=== PATIENT | male | born 1950 | race Caucasian/White ===

== ENCOUNTER → 2016-04-28 | Outpatient (CLI) | payer BC ==
[~2016-04-28] MED LIST: ALTACE 5MG5 MG PO; AMBIEN 10MG10 MG PO; ANDROGEL1% TP; ATARAX50 MG PO; CRESTOR40 MG PO; DEPAKOTE500 MG PO; DOXYCYCLINE 10100 MG PO; GEODON60 MG PO; KLONOPIN 1MG1 MG PO; LAMICTAL 100MG100 MG PO; LEXAPRO 5MG5 MG PO; LEXAPRO5 MG PO; NORCO 325 MG-7.1 TAB PO; ULTRAM 50MG TAB50 MG PO
== END ==
LOC: BHSO 14:39
DX: F31.81 Bipolar II disorder (principal)

== ENCOUNTER → 2016-05-26 | Outpatient (CLI) | payer BC | LOC: BHSO 13:20 | DX: F31.81 Bipolar II disorder (principal) ==

== ENCOUNTER → 2016-07-07 | Outpatient (CLI) | payer BC | LOC: BHSO 10:38 | DX: F31.81 Bipolar II disorder (principal) ==

== ENCOUNTER → 2016-07-15 | Outpatient (CLI) | payer BC | LOC: BHSO 15:14 | DX: F33.41 Major depressive disorder, recurrent, in partial remission (principal) ==

== ENCOUNTER → 2016-09-08 | Outpatient (CLI) | payer BC | LOC: BHSO 10:51 | DX: F31.81 Bipolar II disorder (principal) ==

== ENCOUNTER → 2016-12-01 | Outpatient (CLI) | payer BC | LOC: BHSO 10:39 | DX: F41.1 Generalized anxiety disorder (principal) ==

== ENCOUNTER → 2016-12-08 | Outpatient (CLI) | payer BC | LOC: COL.PUL 10:47 | DX: R06.02 Shortness of breath (principal) | CPT/HCPCS: J7674 ==

== ENCOUNTER 2016-12-19 08:06 | Outpatient (CLI) | payer BC ==
[~2016-12-19] VITALS: Ht 185.5 cm; Wt 131.4 kg
[2016-12-19] VITALS (16 sets, daily range): BP systolic 135–183; BP diastolic 76–104; PULSE 66–82
[~2016-12-19 08:06] MED LIST changes: -LEXAPRO 5MG5 MG PO; +LEXAPRO20 MG PO
[2016-12-19] MEDS ORDERED: WELLBUTRIN XL300 M1 PO (08:47)
[2016-12-19] MEDS ORDERED: MINIPRESS 1M1 MG/CAP PO (08:48)
[2016-12-19] MEDS ORDERED: VITAMIN D32000 I1 PO (08:48)
[2016-12-19] MEDS ORDERED: ZESTRIL2.5 MG PO (08:50)
[2016-12-19 09:09] LABS: HEMATOCRIT 43.9 % (42.0-52.0); HEMOGLOBIN 14.7 g/dl (13.5-18.0); MEAN CELL VOLUME 93 fl (80.0-100.0); MEAN CORPUSCULAR HEMOGLOBIN 31 pg (27.0-31.0); MEAN CORPUSCULAR HGB CONC 34 g/dl (33.0-37.0); MEAN PLATELET VOLUME 9.7 fl (7.4-10.4); PLATELET COUNT 258 K/mm3 (130-400); RED BLOOD COUNT 4.71 M/mm3 (4.20-5.60); REDCELL DISTRIBUTION WIDTH-CV 12.8 % (11.5-14.5); WHITE BLOOD COUNT 6.3 K/mm3 (4.8-10.8)
[2016-12-19 09:10] LABS: CALCIUM 8.7 mg/dL (8.4-10.2); CREATININE, serum 1.01 mg/dL (0.66-1.25); POTASSIUM 4.5 mmol/L (3.4-5.0)
[2016-12-19 09:30] LABS: INR 0.9 (0.8-3.0); PROTHROMBIN TIME 10.3 SECONDS (9.7-12.8)
== END 2016-12-19 12:07 | disposition home or self-care (01) ==
LOC: COL.RAD 08:06
PROVIDERS: Internal Medicine Interventional Cardiology
DX: I34.0 Nonrheumatic mitral (valve) insufficiency (principal); I10 Essential (primary) hypertension; R42 Dizziness and giddiness
CPT/HCPCS: J2250; J3010

== ENCOUNTER → 2016-12-29 | Outpatient (CLI) | payer BC ==
[~2016-12-29] MED LIST changes: +MINIPRESS 1M1 MG/CAP PO; +VITAMIN D32000 I1 PO; +WELLBUTRIN XL300 M1 PO; +ZESTRIL2.5 MG PO
== END ==
LOC: BHSO 14:37
DX: F31.81 Bipolar II disorder (principal)

== ENCOUNTER → 2017-01-12 | Outpatient (CLI) | payer BC | LOC: BHSO 10:59 | DX: F33.1 Major depressive disorder, recurrent, moderate (principal) ==

== ENCOUNTER → 2017-01-26 | Outpatient (CLI) | payer BC | LOC: BHSO 08:34 | DX: F31.81 Bipolar II disorder (principal) ==

== ENCOUNTER → 2017-02-10 | Outpatient (CLI) | payer BC | LOC: BHSO 15:39 | DX: F31.81 Bipolar II disorder (principal) ==

== ENCOUNTER → 2017-03-09 | Outpatient (CLI) | payer BC | LOC: BHSO 09:32 | DX: F33.1 Major depressive disorder, recurrent, moderate (principal) ==

== ENCOUNTER → 2017-03-24 | Outpatient (CLI) | payer BC | LOC: BHSO 15:46 | DX: F31.81 Bipolar II disorder (principal) ==

== ENCOUNTER → 2017-04-27 | Outpatient (CLI) | payer OTHER, BC | LOC: BHSO 14:37 | DX: F31.81 Bipolar II disorder (principal) ==

== ENCOUNTER → 2017-05-11 | Outpatient (CLI) | payer OTHER, BC | LOC: BHSO 10:05 | DX: F43.10 Post-traumatic stress disorder, unspecified (principal) | CPT/HCPCS: G0463 ==

== ENCOUNTER 2017-07-20 11:29 | Inpatient (IN) | payer OTHER, BC, MEDICARE ==
[~2017-07-20] VITALS: Ht 185.4 cm; Wt 129.0 kg
[2017-10-01] VITALS (637 sets, daily range): BP systolic 101–150; BP diastolic 56–98; PULSE 105–121; TEMP 98.3–99.1; O2SAT 83–99
[2017-10-01 14:09] LABS: ALBUMIN 3.9 gm/dL (3.5-5.0); BILIRUBIN,TOTAL 0.5 mg/dL (0.0-1.0); CALCIUM 8.6 mg/dL (8.4-10.2); CREATININE, serum 1.44 mg/dL (0.66-1.25); POTASSIUM 4.7 mmol/L (3.4-5.0)
[2017-10-01 17:10] LABS: ARTERIAL BLD GAS O2 SATURATION 93.7 % (92-100); ARTERIAL BLD GAS TCO2 CT 25.3; ARTERIAL BLOOD GAS BASE EXCESS -1.5 (-2-2); ARTERIAL BLOOD GAS PCO2 43.1 mmHg (35-45); ARTERIAL BLOOD GAS PO2 72.4 mmHg (80-100); ARTERIAL BLOOD GAS pH 7.36 (7.35-7.45)
[2017-10-02] VITALS (862 sets, daily range): BP systolic 131–146; BP diastolic 64–84; PULSE 76–102; TEMP 97.7–98.5; O2SAT 82–100
[2017-10-02 05:13] LABS: BASO % 0.4 % (0.0-2.0); EOS % 0.4 % (0-4.0); GRAN # 6.7 (1.4-6.5); GRAN % 73.4 % (42.2-75.2); HEMATOCRIT 39.6 % (42.0-52.0); HEMOGLOBIN 13.3 g/dl (13.5-18.0); LYMPH # 1.4 (1.2-3.4); LYMPH % 15.6 % (20.0-51.0); MEAN CELL VOLUME 90 fl (80.0-100.0); MEAN CORPUSCULAR HEMOGLOBIN 30 pg (27.0-31.0); MEAN CORPUSCULAR HGB CONC 34 g/dl (33.0-37.0); MEAN PLATELET VOLUME 9.6 fl (7.4-10.4); MONO # 0.9 (0.1-0.6); PLATELET COUNT 260 K/mm3 (130-400); REDCELL DISTRIBUTION WIDTH-CV 12.7 % (11.5-14.5)
[2017-10-02 05:23] LABS: ALBUMIN 3.5 gm/dL (3.5-5.0); BILIRUBIN,TOTAL 0.7 mg/dL (0.0-1.0); CREATININE, serum 1.38 mg/dL (0.66-1.25); POTASSIUM 3.9 mmol/L (3.4-5.0); TOTAL PROTEIN 6.3 gm/dL (6.4-8.2)
[2017-10-02 05:53] LABS: TSH w REFLEX 0.454 uIU/mL (0.465-4.680)
[2017-10-03 04:34] VITALS: BP 155/87; PULSE 100; TEMP 98.5
[2017-10-03 08:01] VITALS: BP 132/79; PULSE 99; TEMP 98.6
[2017-10-03 09:07] LABS: BASO # 0.1 (0.0-0.2); BASO % 0.7 % (0.0-2.0); EOS # 0.1 (0.0-0.7); EOS % 1.1 % (0-4.0); HEMATOCRIT 43.6 % (42.0-52.0); HEMOGLOBIN 14.5 g/dl (13.5-18.0); LYMPH % 11.2 % (20.0-51.0); MEAN CELL VOLUME 91 fl (80.0-100.0); MEAN CORPUSCULAR HEMOGLOBIN 30 pg (27.0-31.0); MEAN CORPUSCULAR HGB CONC 33 g/dl (33.0-37.0); MEAN PLATELET VOLUME 9.6 fl (7.4-10.4); MONO # 0.7 (0.1-0.6); MONO % 7.7 % (1.7-9.3); PLATELET COUNT 270 K/mm3 (130-400); RED BLOOD COUNT 4.82 M/mm3 (4.20-5.60); REDCELL DISTRIBUTION WIDTH-CV 12.5 % (11.5-14.5)
[2017-10-03 09:17] LABS: CALCIUM 8.8 mg/dL (8.4-10.2); CREATININE, serum 0.93 mg/dL (0.66-1.25); POTASSIUM 3.7 mmol/L (3.4-5.0)
== END 2017-10-03 11:30 | disposition home or self-care (01) | DRG 483 ==
LOC: JCC 10-01 05:23 → ICU 10-01 12:22 → SURG 10-02 16:14
PROVIDERS: Hospitalist; Internal Medicine Critical Care Medicine; Orthopaedic Surgery
PROC: 0RRJ00Z Replacement of Right Shoulder Joint with Reverse Ball and Socket Synthetic Substitute, Open Approach (ICD-10-PCS; principal; 2017-10-01 07:30)
DX: M19.011 Primary osteoarthritis, right shoulder (principal); E66.2 Morbid (severe) obesity with alveolar hypoventilation; G97.49 Accidental puncture and laceration of other nervous system organ or structure during other procedure; G56.81 Other specified mononeuropathies of right upper limb; I10 Essential (primary) hypertension; Z68.38 Body mass index [BMI] 38.0-38.9, adult; R09.02 Hypoxemia
CPT/HCPCS: 99222; 99223; 99232-AI; A4314; A9284; C1713; C1776; J0690; J1100; J2250; J2270; J2405; J2704; J2795; J3010; J7120

== ENCOUNTER → 2017-09-24 | Outpatient (CLI) | payer OTHER, BC ==
[2017-09-24 17:05] LABS: HIV 1/2 Antibodies Non-Reactive; HIV-1p24 Antigen Non-Reactive
== END ==
LOC: COL.LAB 16:08
PROVIDERS: Orthopaedic Surgery
DX: Z01.812 Encounter for preprocedural laboratory examination (principal); M19.011 Primary osteoarthritis, right shoulder

== ENCOUNTER → 2018-03-29 | Outpatient (CLI) | payer OTHER, BC ==
[2018-03-29 12:08] LABS: HEMATOCRIT 48.3 % (42.0-52.0); HEMOGLOBIN 16.5 g/dl (13.5-18.0); MEAN CELL VOLUME 88 fl (80.0-100.0); MEAN CORPUSCULAR HEMOGLOBIN 30 pg (27.0-31.0); MEAN CORPUSCULAR HGB CONC 34 g/dl (33.0-37.0); MEAN PLATELET VOLUME 9.4 fl (7.4-10.4); PLATELET COUNT 285 K/mm3 (130-400); RED BLOOD COUNT 5.49 M/mm3 (4.20-5.60); REDCELL DISTRIBUTION WIDTH-CV 12.5 % (11.5-14.5)
[2018-03-29 12:33] LABS: ERYTHROCYTE SEDIMENTATION RATE 10 mm/hr (0-30)
== END ==
LOC: COL.LAB 11:20
PROVIDERS: Orthopaedic Surgery
DX: M25.562 Pain in left knee (principal); Z96.652 Presence of left artificial knee joint

== ENCOUNTER 2018-04-26 13:27 | Inpatient (IN) | payer OTHER, BC, MEDICARE ==
[~2018-04-26] VITALS: Ht 185.4 cm; Wt 131.0 kg
[2018-06-10] VITALS (11 sets, daily range): BP systolic 110–148; BP diastolic 71–90; PULSE 77–91; TEMP 98.2–98.7
[2018-06-10] MEDS ORDERED: ULTRAM 50MG TAB50 MG PO (08:56)
[2018-06-10] MEDS ORDERED: CRESTOR40 MG PO (08:57)
[2018-06-10] MEDS ORDERED: LEXAPRO 10MG10 MG PO (08:57)
[2018-06-10] MEDS ORDERED: XANAX .25M0.25 MG/TA PO (08:58)
[2018-06-10] MEDS ORDERED: NORVASC 10MG10 MG PO (08:58)
--- NOTE | 2018-06-10 08:59 | NUR ---
Initial visit; Patient thanked Catalytic Converter Operator Helper for introducing herself and offering God's blessings.
--- NOTE | 2018-06-10 14:55 | NUR ---
PATIENT BACK IN ROOM 331 POST OP. A&O. VSS. DENIES PAIN IN LLE AT THIS TIME. PATIENT IS ABLE TO SLIGHTLY WIGGLE BLE. LTK DRESSING IS CD&I WITH AQUACEL AND ACEWRAP. TEDS TO RLE. SCD'S TO BLE. POSITIVE PEDAL PULSES TO BLE. ANDERSEN TO DEPENDENT DRAINAGE WITH SMALL AMOUNTS OF CLEAR YELLOW URINE NOTED. IV FLUIDS INFUSING INTO RIGHT HAND IV. NO C/O N/V. LIQUIDS AT BEDSIDE. HEAD TO TOE WNL. AT BEDSIDE. CALL LIGHT IN REACH.
--- NOTE | 2018-06-10 15:44 | NUR ---
CHAO met with patient and his to discuss discharge planning. Patient lives in [place] with his Linda. Patients PCP is Dr Kenji anderson and he obtains his medications from [facility] in . Patient has a walker and plans on doing his PT/OT outpatient at [facility] in [place]. He does not have DPOA and denies completing one. There are no anticipated discharge needs at this time.
--- NOTE | 2018-06-11 04:00 | NUR ---
PT GOT UP AND WALKED. WALKED FROM BED TO THE HALLWAY WALL RIGHT OUTSIDE OF BEDROOM. TOLERATED WELL. STATED THAT HIS KNEE FELT WELL DURING AMBULATION, THAT THE ONLY PAIN IT REALLY HAD WAS ON TOP OF HIS KNEE. AND THAT IS WHERE THE PAIN HAD MAINLY BEEN.
[2018-06-11 04:29] VITALS: BP 140/87; PULSE 89; TEMP 98
--- NOTE | 2018-06-11 06:26 | NUR ---
PT HAD C/O PAIN IN LT KNEE OVER NIGHT. HAS NEEDED PAIN MEDICATION ROUTINLY OVER NOC. CRYOCUFF IN PLACE. KNEE REMAINS IN STRAIGHT POSITION OVER NOC.
[2018-06-11 06:38] LABS: HEMATOCRIT 41.5 % (42.0-52.0)
--- NOTE | 2018-06-11 06:55 | NUR ---
awake resting in bed, bediside shift report received from BASIL Ko
[2018-06-11 07:29] VITALS: BP 135/74; PULSE 84; TEMP 98
--- NOTE | 2018-06-11 07:46 | NUR ---
Pt currently resting in bed oxygen at 3/lpm no distress or complaints of shortness of breath. Pt turned down from 3/lpm to 1/lpm at this time and taught how to use Incentive spirometer. Left leg elevated on pillow, able to wiggle toes on both feet. Left leg brace on with george wrap is clean,dry and intact.
--- NOTE | 2018-06-11 08:30 | NUR ---
full assessment completed, have reviewed assessment completed by student an in agreement with that assessment
--- NOTE | 2018-06-11 09:03 | NUR ---
physical therapy in to work with patient
--- NOTE | 2018-06-11 09:34 | NUR ---
pinon catheter discontinued by Francis, student nurse, occupational therapy in to work with patient
--- NOTE | 2018-06-11 10:32 | NUR ---
Pt complains of pain in Left knee 10/30. Gave 2 [place]. Will reassess.
[2018-06-11 12:00] VITALS: BP 120/72; PULSE 79; TEMP 97.4
--- NOTE | 2018-06-11 13:02 | NUR ---
ambulating in [place] with slow steady gait, no grimacing or moaning noted
--- NOTE | 2018-06-11 13:04 | NUR ---
Pt complaining about pain in knee 08/30. Toradol 15mg given at this time. Will continue to monitor.
--- NOTE | 2018-06-11 14:30 | NUR ---
resting in bed watching basketball game, denies needs at this time, Deon, student nurse will assist with care this pm
[2018-06-11 15:27] VITALS: BP 148/70; PULSE 61; TEMP 97.9
--- NOTE | 2018-06-11 18:24 | NUR ---
Patient ambulated in hallway. Tolerated ambulation well. Patient is resting in chair. Patient has call light within reach and is visiting with his . Passed on report to Bruna GRACIA.
--- NOTE | 2018-06-11 18:54 | NUR ---
in bed visiting with and watching TV, bedside shift report given to BASIL De Los Santos
[2018-06-11 20:00] VITALS: BP 149/71; PULSE 78; TEMP 98.6
--- NOTE | 2018-06-11 21:15 | NUR ---
PT AMB WITH WALKER IN [place] WITH SBA OF CADD INSTRUCTOR. LILIAN WELL.
--- NOTE | 2018-06-11 21:30 | NUR ---
PT RESTING IN BED. HAVING SHARP INTEMITTENT THROBBING PAIN TO LT KNEE. ELEVATED ON PILLOWS. ICE PACK ON. ENC PT TO AMB IN [place] TONIGHT WITH MECHANICAL ENGINEERING COOP. SEE MAR FOR PAIN MED. PT VOIDING W/O DIFFICULTY.
[2018-06-12 00:31] VITALS: BP 133/68; PULSE 83; TEMP 98.7
--- NOTE | 2018-06-12 01:23 | NUR ---
PT HAS BEEN SLEEPING WITH SNORUS RESP.
[2018-06-12 04:16] VITALS: BP 120/82; PULSE 79; TEMP 98.6
--- NOTE | 2018-06-12 04:52 | NUR ---
PT REPORTED AT THE BEGINNING OF THE SHIFT HE WAS URINATING W/O DIFFICULTY. PT UP TO BR WITH WALKER PER SELF PRN THROUGH THE NIGHT. PT SLEEPING NOW.
[2018-06-12 09:13] VITALS: BP 148/63; PULSE 74; TEMP 97
[2018-06-12] MEDS ORDERED: NORCO 325 MG-7.1 TAB PO (10:37)
[2018-06-12] MEDS ORDERED: ASPI325T6 PO (10:37)
[2018-06-12] MEDS ORDERED: ROXICODONE 55 MG/TAB PO (10:38)
[2018-06-12] MEDS ORDERED: ZANTAC 150MG T150 MG PO (10:39)
--- NOTE | 2018-06-12 12:00 | NUR ---
Left knee incisional pain improved with prn medication. Ambulated in halls with walker and physical therapy. Dr. Medina saw patient. Left knee incision line CDI. Randy rodriguez applied. Prescriptions and home instructions given. Dismissed to home with spouse.
== END 2018-06-12 12:00 | disposition home or self-care (01) | DRG 468 ==
LOC: JCC 06-10 06:34
PROVIDERS: ADMIT Orthopaedic Surgery
PROC: 0SRW0J9 Replacement of Left Knee Joint, Tibial Surface with Synthetic Substitute, Cemented, Open Approach (ICD-10-PCS; 2018-06-10)
PROC: 0SBD0ZZ Excision of Left Knee Joint, Open Approach (ICD-10-PCS; 2018-06-10)
PROC: 0SPW0JZ Removal of Synthetic Substitute from Left Knee Joint, Tibial Surface, Open Approach (ICD-10-PCS; principal; 2018-06-10 14:00)
DX: T84.013A Broken internal left knee prosthesis, initial encounter (principal); T84.89XA Other specified complication of internal orthopedic prosthetic devices, implants and grafts, initial encounter; M65.9 Synovitis and tenosynovitis, unspecified; I10 Essential (primary) hypertension; Z96.652 Presence of left artificial knee joint; N40.0 Benign prostatic hyperplasia without lower urinary tract symptoms
CPT/HCPCS: A4314; A9284; C1713; C1776; J0690; J1100; J1885; J2250; J2405; J2704; J7120

== ENCOUNTER → 2018-06-03 | Outpatient (CLI) | payer OTHER, BC, MEDICARE ==
[2018-06-03 11:12] LABS: HIV 1/2 Antibodies Non-Reactive; HIV-1p24 Antigen Non-Reactive
== END ==
LOC: COL.LAB 09:48
PROVIDERS: Orthopaedic Surgery
DX: Z01.812 Encounter for preprocedural laboratory examination (principal)

== ENCOUNTER 2019-03-31 10:10 | Inpatient (IN) | payer BC, MEDICARE ==
[~2019-03-31] VITALS: Ht 185.4 cm; Wt 123.3 kg
[~2019-03-31 10:10] MED LIST changes: +ASPI325T6 PO; +LEXAPRO 10MG10 MG PO; +NORVASC 10MG10 MG PO; +ROXICODONE 55 MG/TAB PO; +XANAX .25M0.25 MG/TA PO; +ZANTAC 150MG T150 MG PO
[2019-05-24] VITALS (10 sets, daily range): BP systolic 95–155; BP diastolic 55–83; PULSE 81–110; TEMP 97.8–98.5
--- NOTE | 2019-05-24 07:57 | NUR ---
pt prepped for surgery, pre op meds given as ordered.
--- NOTE | 2019-05-24 14:20 | NUR ---
PT TO ROOM 324 PER BED WITH REPORT FROM YADY GRACIA PACU. PT IS A/O X3. LUNGS COARSE, BOWEL SOUNDS HYPO. AQUACEL AND ICE TO LEFT SHOULDER IN SLING. IV TO PUMP. PT TOLERATING WELL VSS.
--- NOTE | 2019-05-24 14:38 | NUR ---
CHAO met with the patient and his , Linda (c.ph#[phone]), to discuss discharge plan. The patient lives in [place] with his and son. He reports independence with ADLs and does not have any DME. The patient's PCP is Dr. Kenji Hopkins and he receives his medications at [facility] in [place]. He reports no difficulties obtaining his meds. The patient does not have advanced directives and he was not interested in completing them at this time. The patient plans to return home with his family and receive outpatient therapy at [facility] upon discharge. No additional needs at this time.
--- NOTE | 2019-05-24 16:46 | NUR ---
RT NOTIFIED OF PT BASELINE OF 89 IS TAUGHT AND ENCOURAGED.
[2019-05-25 00:27] VITALS: BP 94/60; PULSE 95; TEMP 98
--- NOTE | 2019-05-25 01:12 | NUR ---
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 Able to move fingers and hand. Pulses present. Ice to left shoulder. Immobilizer in place. Started to complain of pain about 5. States 07/30. Refuses pain medication at this time. States he will call when he feels it is needed. Denies any further needs. Will continue to monitor.
[2019-05-25 04:51] VITALS: BP 115/64; PULSE 85; TEMP 98.4
--- NOTE | 2019-05-25 07:00 | NUR ---
awake resting in bed, bedside shift report recieved from BASIL Ackerman
[2019-05-25] MEDS ORDERED: XARELTO10 MG PO (07:27)
[2019-05-25] MEDS ORDERED: NORCO 325 MG-7.1 TAB PO (07:28)
[2019-05-25] MEDS ORDERED: ROXICODONE 55 MG/TAB PO (07:29)
--- NOTE | 2019-05-25 07:45 | NUR ---
resting in bed watching TV, full assessment completed, see interventions for further info, pinon catheter discontinued, instructed to call wh en he needs to get up to void, verbalizes understanding
[2019-05-25 08:44] VITALS: BP 108/59; PULSE 87; TEMP 98.8
--- NOTE | 2019-05-25 09:00 | NUR ---
physical therapy in and worked with patient, ambulated in [place]
--- NOTE | 2019-05-25 09:20 | NUR ---
occupational therapy in to work with patient
--- NOTE | 2019-05-25 10:00 | NUR ---
up to bathroom and voided large amount
--- NOTE | 2019-05-25 11:10 | NUR ---
medicated with roxicodone 5mg po for c/o pain 07/30, discharge instructions given to patient and his , verbalizes understanding
--- NOTE | 2019-05-25 11:25 | NUR ---
discharged per WC
== END 2019-05-25 11:25 | disposition home or self-care (01) | DRG 483 ==
LOC: SURG 05-24 06:56 → JCC 05-24 07:30 → SURG 05-25 11:25
PROVIDERS: ADMIT Orthopaedic Surgery
PROC: 0RRK00Z Replacement of Left Shoulder Joint with Reverse Ball and Socket Synthetic Substitute, Open Approach (ICD-10-PCS; principal; 2019-05-24 10:20)
DX: M75.102 Unspecified rotator cuff tear or rupture of left shoulder, not specified as traumatic (principal); M19.012 Primary osteoarthritis, left shoulder; I10 Essential (primary) hypertension; E78.5 Hyperlipidemia, unspecified
CPT/HCPCS: A4314; A4566; A4619; A9284; C1713; C1776; J0690; J1100; J2250; J2704; J2795; J7120

== ENCOUNTER → 2020-12-19 | Outpatient (CLI) | payer BC ==
[~2020-12-19] MED LIST changes: +XARELTO10 MG PO
== END ==
LOC: COL.RAD 07:42
DX: M54.6 Pain in thoracic spine (principal); G89.29 Other chronic pain

== ENCOUNTER → 2022-01-30 | Outpatient (CLI) | payer BC | LOC: COL.RAD 14:24 | DX: I71.21 Aneurysm of the ascending aorta, without rupture (principal); K76.0 Fatty (change of) liver, not elsewhere classified; E04.2 Nontoxic multinodular goiter; I27.21 Secondary pulmonary arterial hypertension; I11.9 Hypertensive heart disease without heart failure; I31.39 Other pericardial effusion (noninflammatory); R91.8 Other nonspecific abnormal finding of lung field | CPT/HCPCS: Q9967 ==

== ENCOUNTER 2023-04-03 05:45 | Day surgery (SDC) | payer BC ==
[~2023-04-03] VITALS: Ht 185.4 cm; Wt 122.5 kg
[~2023-04-03 05:45] MED LIST changes: +LR 1,000 ML IV SCH; +Ondansetron 4 MG/2 ML VIAL IV PRN
[2023-04-03] MEDS ORDERED: Lidocaine PF 2% (20 MG/ML) 5 ML VIAL ONE (07:06)
[2023-04-03] MEDS ORDERED: ZYLOPRIM 100MG100 MG PO (07:20)
[2023-04-03] MEDS ORDERED: DEPAKOTE500 MG PO (07:21)
[2023-04-03] MEDS ORDERED: CAPLYTA42 MG PO (07:21)
[2023-04-03] MEDS ORDERED: CYMBALTA 60MG60 MG PO (07:22)
[2023-04-03] MEDS ORDERED: PEPCID 20MG TAB20 MG PO (07:22)
[2023-04-03] MEDS ORDERED: FLOMAX 0.40.4 MG/CAP PO (07:23)
[2023-04-03] MEDS ORDERED: FEMARA PO (07:23)
[2023-04-03] MEDS ORDERED: GLUCOPHAGE500 MG/TAB PO (07:24)
[2023-04-03] MEDS ORDERED: TOPROL XL100 MG PO (07:25)
[2023-04-03] MEDS ORDERED: AMOXICILLIN 8751 TAB PO (07:26)
[2023-04-03 07:35] VITALS: BP 127/86; PULSE 102; TEMP 98.2
[2023-04-03 08:00] VITALS: BP 127/98; PULSE 99; TEMP 98.4
[2023-04-03 08:15] VITALS: BP 144/108; PULSE 90
--- NOTE | 2023-04-03 08:48 | NUR ---
0800-PATIENT ARRIVED VIA CART TO [facility], ALERT AND ORIENTED ON ARRIVAL. PT ASSISTED TO RECLINER WITH X2 ASSIST, WARM BLANKETS PROVIDED. REPORT OBTAINED FROM BASIL CONTEH. PATIENT DENIES PAIN OR NAUSEA. VITAL SIGNS TAKEN, VSS. PT GIVEN PO FLUIDS. UPDATE GIVEN TO PATIENT AND SPOUSE AT BEDSIDE. 0815-VITAL SIGNS TAKEN, HYPERTENSION NOTED. ENCOURAGED PT TO TAKE MEDICATIONS ONCE HOME. TOLERATING PO INTAKE WITHOUT COMPLAINT. 0830-DR. GELLER AT BEDSIDE, PROCEDURE FINDINGS DISCUSSED. 0835-DISCHARGE INSTRUCTIONS REVIEWED, QUESTIONS INVITED. IV CATHETER DISCONTINUED, TIP INTACT. PRESSURE DRESSING APPLIED. PATIENT DRESSED INDEPENDENTLY. 0845-PATIENT DISCHARGED HOME TO [facility] VIA WHEELCHAIR, ACCOMPANIED BY SPOUSE. ALL BELONGINGS AND D/C PAPERWORK SENT WITH PT.
== END 2023-04-03 08:45 | disposition home or self-care (01) ==
LOC: SDCO 05:45
DX: K21.00 Gastro-esophageal reflux disease with esophagitis, without bleeding (principal); D12.2 Benign neoplasm of ascending colon; K31.7 Polyp of stomach and duodenum; K29.80 Duodenitis without bleeding; K57.30 Diverticulosis of large intestine without perforation or abscess without bleeding; R19.7 Diarrhea, unspecified; R63.4 Abnormal weight loss; R19.4 Change in bowel habit; I10 Essential (primary) hypertension; Z79.899 Other long term (current) drug therapy
CPT/HCPCS: J2704; J7120

== ENCOUNTER → 2024-01-12 | Outpatient (CLI) | payer BC ==
[~2024-01-12] MED LIST changes: +AMOXICILLIN 8751 TAB PO; +CAPLYTA42 MG PO; +CYMBALTA 60MG60 MG PO; +FEMARA PO; +FLOMAX 0.40.4 MG/CAP PO; +GLUCOPHAGE500 MG/TAB PO; +Iohexol 300 - 100 ML VIAL IV ONE; -LR 1,000 ML IV SCH; +NS 100 ML IV SCH; -Ondansetron 4 MG/2 ML VIAL IV PRN; +PEPCID 20MG TAB20 MG PO; +TOPROL XL100 MG PO; +ZYLOPRIM 100MG100 MG PO
== END ==
LOC: COL.RAD 06:49
DX: N28.1 Cyst of kidney, acquired (principal); K57.30 Diverticulosis of large intestine without perforation or abscess without bleeding
CPT/HCPCS: Q9967